=== PATIENT | female | born 1975 | race Caucasian/White ===

== ENCOUNTER → 2019-03-04 | Outpatient (CLI) | payer OTHER ==
[~2019-03-04] MED LIST: ALBUTEROL0.09 MG/A2 INH; ANAPROX DS550 MG PO; ATARAX25 MG PO; B12,B-12,B 12500 MCG PO; BACTRIM DS 8001 TA1 PO; BUPROPION HCL75 MG PO; BUSPAR; BUSPAR DIVIDOSE30 MG PO; BUSPAR10 MG PO; BUSPAR15 MG PO; BUSPIRONE HCL10 MG PO; BUSPIRONE15 MG PO; CATAFLAM50 MG PO; CEPHALEXIN500 MG PO; CIPRO250 MG PO; CIPROFLOXACIN500 MG PO; CLEOCIN HCL150 MG PO; CLEOCIN150 MG PO; CLINDAMYCIN HC300 MG PO; CYMBALTA60 MG PO; DIAZEPAM10 MG PO; Depakote500 MG PO; EPIPEN 2-PAK1 MG/ML IJ; FLAGYL500 MG PO; FLEXERIL10 MG PO; Fioricet 325 MG1 TAB PO; Flagyl500 M1 PO; GABAPENTIN300 M1 PO; GABAPENTIN300 MG PO; HYDROCODONE BIT1 T11 PO; HYDROXYZINE PAM50 MG PO; LEVOFLOXACIN500 MG PO; LIDEX0.05% T; LINESS; LOMOTIL 0.025 M1 TA1 PO; MACROBID100 M1 PO; MEDROL DOSEPAK4 MG PO; METHOCARBAMOL500 MG PO; MIRALAX POWDER17 G1 PO; MIRTAZAPINE30 M2 PO; MOBIC7.5 MG PO; MOTRIN600 MG PO; MOTRIN800 MG PO; NEURONTIN300 MG PO; NEURONTIN800 MG PO; NKHM; NORCO 325 MG-51 TAB PO; OXYCODONE AND A1 TA3 PO; OXYCODONE AND A1 TAB PO; PERCOCET 325 MG1 TA2 PO; PERCOCET 325 MG1 TA3 PO; PERCOCET 325 MG1 TA4 PO; PERCOCET 325 MG1 TA7 PO; PERIDEX 480 ML480 ML PO; PHENERGAN W/DM120 ML PO; PHENERGAN25 M1 PO; PREDNICOT10 MG PO; PREDNICOT20 MG PO; PREDNISONE10 MG PO; PROAIR HFA0.09 MG/AC INH; PROVENTIL0.09 MG/AC IH; PYRIDIUM200 MG PO; ROBAXIN750 MG PO; ROBITUSSIN AC 10 MG/ PO; ROBITUSSIN DM120 ML PO; SERTRALINE HYD100 MG PO; SUBOXONE 2 MG-1 EACH SL; TESSALON PERLE200 MG PO; TRAMADOL HCL50 MG PO; TRAZADONE HYDR100 MG PO; TYLENOL W/CODEI1 TA2 PO; ULTRAM ER100 MG PO; ULTRAM50 MG PO; VALIUM10 MG PO; VENLAFAXINE HY150 M2 PO; VESICARE10 MG PO; VIBRAMYCIN100 MG PO; VICODIN 5/500 505 MG PO; VICODIN ES 7501 TAB PO; VISTARIL50 MG PO; VITAMIN B12500 MCG PO; VOLTAREN50 M1 PO; WELLBUTRIN100 MG PO; WELLBUTRIN75 MG PO; ZANTAC150 MG PO; ZITHROMAX Z PA250 MG PO; ZITHROMAX250 MG PO; ZOFRAN4 MG PO; ZOLOFT50 MG PO; ZOVIRAX400 MG PO; Zofran4 MG PO; [UNRECOGNIZED DRUG - OTHER]
== END | disposition home or self-care (01) ==
LOC: RAD 14:42
DX: M54.5 Low back pain (principal); W19.XXXA Unspecified fall, initial encounter; Y93.89 Activity, other specified; Y92.89 Other specified places as the place of occurrence of the external cause; Y99.8 Other external cause status

== ENCOUNTER 2019-07-06 00:23 | Emergency (ER) | payer OTHER ==
[~2019-07-06] VITALS: Ht 170.1 cm; Wt 59.0 kg
== END 2019-07-06 01:30 | disposition home or self-care (01) ==
LOC: ED 00:23
DX: S61.217A Laceration without foreign body of left little finger without damage to nail, initial encounter (principal); W26.8XXA Contact with other sharp object(s), not elsewhere classified, initial encounter; Y93.G9 Activity, other involving cooking and grilling; Y92.098 Other place in other non-institutional residence as the place of occurrence of the external cause; Y99.8 Other external cause status; Z88.0 Allergy status to penicillin; Z88.6 Allergy status to analgesic agent; Z79.899 Other long term (current) drug therapy; Z90.710 Acquired absence of both cervix and uterus

== ENCOUNTER 2019-07-16 10:37 | Emergency (ER) | payer OTHER ==
[~2019-07-16] VITALS: Ht 170.1 cm; Wt 59.0 kg
--- NOTE | ~2019-07-16 | EKG ---
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
[2019-07-16 11:23] LABS: BASO # 0.1 10*3/uL (0.0-0.1); BASO % 0.7 % (0.0-1.0); EOS # 0.1 10*3/uL (0.0-0.4); EOS % 0.8 % (1.0-4.0); HEMOGLOBIN 11.8 g/dl (12.0-16.0); LYMPH # 2.1 10*3/uL (1.3-4.4); LYMPH % 15.8 % (27.0-41.0); MEAN CELL VOLUME 82.4 fl (81.0-99.0); MEAN CORPUSCULAR HGB CONC 32.8 g/dl (33.0-37.0); MEAN PLATELET VOLUME 9.6 fl (9.6-12.3); MONO # 0.6 10*3/uL (0.1-1.0); MONO % 4.7 % (3.0-9.0); NEUT # 10.1 10*3/uL (2.3-7.9); NEUT % 77.8 % (47.0-73.0); PLATELET COUNT AUTOMATED 396 10*3/uL (130-400); RED BLOOD COUNT 4.37 10*6/uL (4.10-5.10); RED CELL DISTRI WIDTH 13.4 % (0-14.5)
[2019-07-16 11:33] LABS: ACT PARTIAL THROMBO TIME 25.9 SECONDS (20.0-32.1); INTERNATIONAL NORM RATIO 0.9 (2.0-3.5)
[2019-07-16 11:42] LABS: ALBUMIN 3.9 gm/dl (3.1-4.5); ALKALINE PHOSPHATASE 167 U/L (45-117); BUN 34 mg/dl (7-24); CHLORIDE 105 mmol/L (98-107); CREATININE 1.23 mg/dL (0.55-1.02); LIPASE 388 U/L (73-393); POTASSIUM 3.3 mmol/L (3.5-5.1); SGOT/AST 49 IU/L (3-35); SGPT/ALT 79 U/L (12-78); SODIUM 133 mmol/L (136-145); TOTAL PROTEIN 9.4 gm/dL (6.4-8.2)
[2019-07-16 11:49] LABS: ACETAMINOPHEN (TYLENOL) < 5.0 ug/ml (10-30); ETHYL ALCOHOL < 3.0 mg/dl (<3); TROPONIN I < 0.015 ng/ml (<0.045)
[2019-07-16 13:49] LABS: BILIRUBIN NEGATIVE (NEGATIVE); BLOOD NEGATIVE (NEGATIVE); CLARITY SL CLOUDY (CLEAR); COLOR YELLOW (YELLOW); GLUCOSE NEGATIVE (NEGATIVE); KETONE NEGATIVE (NEGATIVE); LEUKO ESTERASE NEGATIVE (NEGATIVE); NITRITE NEGATIVE (NEGATIVE); PH 6.5 (5.0-9.0); SPECIFIC GRAVITY <= 1.005 (1.005-1.030)
[2019-07-16 13:54] LABS: URINE AMPHETAMINES > 1000 (1000ng/ml); URINE BARBITURATES < 200 (200ng/ml); URINE BENZODIAZEPINES < 200 (200ng/ml); URINE CANNABINOIDS (THC) > 50 (50ng/ml); URINE COCAINE > 300 (300ng/ml); URINE METHADONE < 300 (300ng/ml); URINE OPIATES < 300 (300ng/ml)
[2019-07-16 13:57] LABS: URINE PHENCYCLIDINE < 25 (25ng/ml)
[2019-07-16 14:01] LABS: BACTERIA TRACE
== END 2019-07-16 16:01 | disposition home or self-care (01) ==
LOC: ED 10:37
PROVIDERS: Nurse Practitioner Family
DX: F15.10 Other stimulant abuse, uncomplicated (principal); F14.10 Cocaine abuse, uncomplicated; F19.10 Other psychoactive substance abuse, uncomplicated; R10.31 Right lower quadrant pain; R10.11 Right upper quadrant pain; J44.9 Chronic obstructive pulmonary disease, unspecified; F31.9 Bipolar disorder, unspecified; F17.200 Nicotine dependence, unspecified, uncomplicated; Z88.0 Allergy status to penicillin; Z88.6 Allergy status to analgesic agent; Z90.710 Acquired absence of both cervix and uterus; Z90.49 Acquired absence of other specified parts of digestive tract

== ENCOUNTER 2019-07-16 21:19 | Emergency (ER) | payer OTHER ==
[~2019-07-16] VITALS: Ht 170.1 cm; Wt 59.9 kg
--- NOTE | ~2019-07-16 | EKG ---
[place], [place] ELECTROCARDIOGRAM REPORT NAME: SCOTT OLIVO UNIT #: [id number] ROOM: DOCTOR: BRAN DRAFT REPORT BIRTHDATE: [birth year] [facility] Test Date: 2019-07-16 Test Time: 22:49:46 Pat Name: SCOTT OLIVO Department: Room: Gender: F Family Practice Physician Assistant: SS RESP : 1975 Requested By: TARA SHANE Order Number: [id number] Reading MD: Jonas Franks MD Measurements Intervals [place] Rate: 81 P: 93 VT: 135 QRS: 44 QRSD: 90 T: 20 QT: 401 QTc: 466 Interpretive Statements Sinus rhythm Ventricular premature complex Nonspecific T wave abnormalities Electronically Signed On 07-17-2019 8:24:37 PDT by Jonas Franks MD CM:EKGRPT:ELECTROCARDIOGRAM REPORT [id number] TARA MONTOYA DRAFT REPORT TARA SHANE DO
[2019-07-16 22:06] LABS: BILIRUBIN NEGATIVE (NEGATIVE); BLOOD NEGATIVE (NEGATIVE); CLARITY CLEAR (CLEAR); COLOR YELLOW (YELLOW); GLUCOSE NEGATIVE (NEGATIVE); KETONE TRACE (NEGATIVE); LEUKO ESTERASE NEGATIVE (NEGATIVE); NITRITE NEGATIVE (NEGATIVE); SPECIFIC GRAVITY 1.025 (1.005-1.030)
[2019-07-16 22:16] LABS: BASO # 0.1 10*3/uL (0.0-0.1); EOS # 0.1 10*3/uL (0.0-0.4); EOS % 0.9 % (1.0-4.0); HEMATOCRIT 34.9 % (37.0-47.0); HEMOGLOBIN 11.3 g/dl (12.0-16.0); LYMPH # 2.2 10*3/uL (1.3-4.4); MEAN CELL VOLUME 83.1 fl (81.0-99.0); MEAN CORPUSCULAR HGB 26.9 pg (27.0-31.0); MEAN CORPUSCULAR HGB CONC 32.4 g/dl (33.0-37.0); MEAN PLATELET VOLUME 9.3 fl (9.6-12.3); MONO # 0.6 10*3/uL (0.1-1.0); MONO % 5.7 % (3.0-9.0); NEUT # 7.3 10*3/uL (2.3-7.9); NEUT % 71.1 % (47.0-73.0); PLATELET COUNT AUTOMATED 374 10*3/uL (130-400); RED CELL DISTRI WIDTH 13.6 % (0-14.5); WHITE BLOOD COUNT 10.3 10*3/uL (4.8-10.8)
[2019-07-16 22:32] LABS: ALBUMIN 3.7 gm/dl (3.1-4.5); ALKALINE PHOSPHATASE 150 U/L (45-117); BUN 26 mg/dl (7-24); CHLORIDE 108 mmol/L (98-107); CREATININE 0.88 mg/dL (0.55-1.02); POTASSIUM 3.5 mmol/L (3.5-5.1); SGOT/AST 41 IU/L (3-35); SGPT/ALT 69 U/L (12-78); SODIUM 136 mmol/L (136-145); TOTAL PROTEIN 8.8 gm/dL (6.4-8.2)
[2019-07-16 22:34] LABS: ETHYL ALCOHOL < 3.0 mg/dl (<3)
[2019-07-16 22:35] LABS: ACETAMINOPHEN (TYLENOL) < 5.0 ug/ml (10-30)
[2019-07-16 22:37] LABS: URINE AMPHETAMINES > 1000 (1000ng/ml); URINE BARBITURATES < 200 (200ng/ml); URINE BENZODIAZEPINES < 200 (200ng/ml); URINE CANNABINOIDS (THC) > 50 (50ng/ml); URINE COCAINE > 300 (300ng/ml); URINE METHADONE < 300 (300ng/ml); URINE OPIATES < 300 (300ng/ml); URINE PHENCYCLIDINE < 25 (25ng/ml)
[2019-07-16 22:44] LABS: BACTERIA 1+; EPITHELIAL CELLS 35-40
== END 2019-07-18 09:20 | disposition home or self-care (01) ==
LOC: ED 21:19
PROVIDERS: Student in an Organized Health Care Education/Training Program
DX: F32.9 Major depressive disorder, single episode, unspecified (principal); F19.10 Other psychoactive substance abuse, uncomplicated; F17.200 Nicotine dependence, unspecified, uncomplicated; Z88.0 Allergy status to penicillin; Z88.6 Allergy status to analgesic agent; Z90.710 Acquired absence of both cervix and uterus; Z90.49 Acquired absence of other specified parts of digestive tract